=== PATIENT | female | born 1945 | race Caucasian/White ===

== ENCOUNTER 2016-10-21 08:22 | Day surgery (SDC) | payer MEDICARE, OTHER ==
[2016-10-21] MEDS ORDERED: PHENYLEPHRINE 2.5% OPHTH 2 ML DROPS ONE (08:38)
[2016-10-21] MEDS ORDERED: PROPARACAINE 0.5% OPHTH DROPS 15 ML OPTH ONE ×2 (08:54→09:44)
[2016-10-21] MEDS ORDERED: CYCLOPENTOLATE 1% OPHTH DROPS 2 ML OPTH ONE (08:54)
[2016-10-21] MEDS ORDERED: KETOROLAC 0.45% OPHTH DROPS OPTH ONE (08:55)
[2016-10-21] MEDS ORDERED: PHENYLEPHRINE 2.5% OPHTH 2 ML DROPS OPTH ONE (08:55)
[2016-10-21] MEDS ORDERED: DEXAMETHASONE 4 MG/ML VIAL IVP ONE (09:00)
[2016-10-21] MEDS ORDERED: LIDOCAINE-MPF 2% 5 ML VIAL IM ONE (09:00)
[2016-10-21] MEDS ORDERED: ONDANSETRON 4 MG/2 ML VIAL IVP ONE (09:00)
[2016-10-21] MEDS ORDERED: PROPOFOL 200 MG/20 ML VIAL IVP ONE (09:00)
[2016-10-21] MEDS ORDERED: MIDAZOLAM 2 MG/2 ML VIAL IVP ONE (09:00)
[2016-10-21] MEDS ORDERED: LACTATED RINGERS 500 ML IV ONE (09:01)
[2016-10-21] MEDS ORDERED: BRIMONIDINE 0.2% OPHTH DROPS 5 ML OPTH ONE (09:43)
[2016-10-21] MEDS ORDERED: TIMOLOL 0.5% OPHTH DROPS OPTH ONE (09:44)
[2016-10-21] MEDS ORDERED: CHONDR SULF/HYALURONATE SYRINGE IO ONE (09:44)
[2016-10-21] MEDS ORDERED: EPINEPHrine 1 MG/ML AMP IVP ONE (09:44)
[2016-10-21] MEDS ORDERED: BSS/LIDOCAINE/EPINEPHRINE 1 ML SYRINGE IO ONE (09:45)
[2016-10-21] MEDS ORDERED: TRIAMCIN/MOXIFLOX/VANCO 1 ML VIAL IO ONE (09:45)
[2016-10-21] MEDS ORDERED: KETOROLAC 15 MG/ML VIAL ONE (10:45)
== END 2016-10-21 08:23 | disposition home or self-care (01) ==
PROC: 08RK3JZ Replacement of Left Lens with Synthetic Substitute, Percutaneous Approach (ICD-10-PCS; principal; 2016-10-21 09:45)
DX: H25.12 Age-related nuclear cataract, left eye (principal); I10 Essential (primary) hypertension; K21.9 Gastro-esophageal reflux disease without esophagitis; E78.5 Hyperlipidemia, unspecified; M19.042 Primary osteoarthritis, left hand
CPT/HCPCS: 66984; A9270; V2632

== ENCOUNTER 2016-11-29 10:36 | Outpatient (CLI) | payer MEDICARE, OTHER | END 2016-11-29 10:37 | disposition home or self-care (01) | DX: Z12.31 Encounter for screening mammogram for malignant neoplasm of breast (principal) ==

== ENCOUNTER 2017-03-09 07:32 | Outpatient (CLI) | payer MEDICARE, OTHER ==
[2017-03-09 12:17] LABS: LDL CHOLESTEROL,DIRECT 122 mg/dL
== END 2017-03-09 07:33 | disposition home or self-care (01) ==
LOC: LAB.F 07:32
PROVIDERS: ATTEND Physician Assistant Medical
DX: E78.2 Mixed hyperlipidemia (principal); Z79.899 Other long term (current) drug therapy
CPT/HCPCS: 36415; 84450; 84460

== ENCOUNTER 2017-04-21 07:54 | Outpatient (CLI) | payer MEDICARE, OTHER ==
[2017-04-21 14:19] LABS: BASOPHILS # (AUTO) 0.1 10^3/uL (0.0-0.1); BASOPHILS % (AUTO) 1.8 %; EOSINOPHILS # (AUTO) 0.4 10^3/uL (0.0-0.7); EOSINOPHILS % (AUTO) 6.7 %; HCT - HEMATOCRIT 35.9 % (37.0-47.0); HGB - HEMOGLOBIN 12.3 g/dL (12.0-16.0); LYMPHOCYTES # (AUTO) 1.8 10^3/uL (1.5-3.5); LYMPHOCYTES % (AUTO) 29.5 %; MEAN CORPUSCULAR HEMOGLOBIN 28.7 pg (27.0-31.0); MEAN CORPUSCULAR HGB CONC 34.2 g/dL (32.0-36.0); MEAN CORPUSCULAR VOLUME 84.1 fL (81.0-99.0); MONOCYTES # (AUTO) 0.4 10^3/uL (0.0-1.0); MONOCYTES % (AUTO) 7.3 %; NEUTROPHILS # (AUTO) 3.4 10^3/uL (1.5-6.6); NEUTROPHILS % (AUTO) 54.7 %; RED BLOOD COUNT 4.27 10^6/uL (4.20-5.40); RED CELL DISTRIBUTION WIDTH 13.8 % (12.0-15.0); UNCORRECTED WHITE BLOOD COUNT 6.2 x10^3/uL; WHITE BLOOD COUNT 6.2 x10^3/uL (4.8-10.8)
[2017-04-21 14:35] LABS: ALBUMIN/GLOBULIN RATIO 1.6 (1.0-2.2); BILIRUBIN,TOTAL 1.1 mg/dL (0.2-1.0); BUN - BLOOD UREA NITROGEN 18 mg/dL (6-20); CALCIUM 8.8 mg/dL (8.5-10.3); CARBON DIOXIDE - CO2 26 mmol/L (21-32); CHLORIDE 106 mmol/L (101-111); CHOL/HDL RATIO 2.4 (<4.4); CHOLESTEROL 198 mg/dL; CREATININE 0.5 mg/dL (0.4-1.0); GFR - MDRD 122 (>89); GLUCOSE 97 mg/dL (70-100); HDL CHOLESTEROL 83 mg/dL; LDL/HDL RATIO 1.2 (<4.4); POTASSIUM 3.7 mmol/L (3.5-5.0); SODIUM 140 mmol/L (135-145); TOTAL PROTEIN 6.9 g/dL (6.7-8.2); TRIGLYCERIDES 63 mg/dL; VLDL CHOLESTEROL 13 mg/dL
== END 2017-04-21 07:55 | disposition home or self-care (01) ==
LOC: LAB.F 07:54
PROVIDERS: ATTEND Physician Assistant Medical
DX: E55.9 Vitamin D deficiency, unspecified (principal); E78.5 Hyperlipidemia, unspecified; I10 Essential (primary) hypertension; Z11.59 Encounter for screening for other viral diseases; M85.80 Other specified disorders of bone density and structure, unspecified site; Z79.899 Other long term (current) drug therapy
CPT/HCPCS: 36415; 80053; 80061; 82306; 84443; 85025; 86803

== ENCOUNTER 2017-05-17 11:58 | Outpatient (CLI) | payer MEDICARE, OTHER ==
--- NOTE | 2017-05-17 17:28 | XRAY Report ---
BILATERAL HIPS AND PELVIS: 05/17/2017 CLINICAL INDICATION: Osteoarthritis. Frontal view of the hips and pelvis, and bilateral frog-leg lateral views of the hips demonstrate no evidence of fracture or dislocation. The joint spaces are preserved. No radiopaque foreign body is seen in the soft tissues. IMPRESSION: NORMAL HIPS AND PELVIS. JOB #: [id number] EXT JOB #:[id number]
== END 2017-05-17 11:59 | disposition home or self-care (01) ==
LOC: DI.S 11:58
PROVIDERS: ATTEND Physician Assistant Medical
DX: M15.9 Polyosteoarthritis, unspecified (principal)
CPT/HCPCS: 73521

== ENCOUNTER 2018-07-18 09:28 | Outpatient (CLI) | payer MEDICARE, OTHER ==
[2018-07-18 17:56] LABS: BASOPHILS # (AUTO) 0.1 10^3/uL (0.0-0.1); BASOPHILS % (AUTO) 1.7 %; EOSINOPHILS # (AUTO) 0.4 10^3/uL (0.0-0.7); EOSINOPHILS % (AUTO) 7.2 %; HGB - HEMOGLOBIN 12.6 g/dL (12.0-16.0); LYMPHOCYTES # (AUTO) 1.7 10^3/uL (1.5-3.5); LYMPHOCYTES % (AUTO) 32.2 %; MEAN CORPUSCULAR HEMOGLOBIN 28.7 pg (27.0-31.0); MEAN CORPUSCULAR HGB CONC 33.1 g/dL (32.0-36.0); MEAN CORPUSCULAR VOLUME 86.8 fL (81.0-99.0); MEAN PLATELET VOLUME 9.2 fL (7.9-10.8); MONOCYTES # (AUTO) 0.4 10^3/uL (0.0-1.0); MONOCYTES % (AUTO) 6.9 %; NEUTROPHILS # (AUTO) 2.7 10^3/uL (1.5-6.6); PLT - PLATELET COUNT 193 10^3/uL (130-450); WHITE BLOOD COUNT 5.2 x10^3/uL (4.8-10.8)
[2018-07-18 18:06] LABS: ALBUMIN 4.4 g/dL (3.2-5.5); ALBUMIN/GLOBULIN RATIO 1.7 (1.0-2.2); ALKALINE PHOSPHATASE 53 IU/L (42-121); ALT ALANINE AMINOTRANSFERASE 27 IU/L (10-60); AST ASPARTATE AMINOTRANSFERASE 21 IU/L (10-42); BILIRUBIN,TOTAL 0.7 mg/dL (0.2-1.0); BUN - BLOOD UREA NITROGEN 15 mg/dL (6-20); CARBON DIOXIDE - CO2 28 mmol/L (21-32); CHLORIDE 104 mmol/L (101-111); CHOL/HDL RATIO 2.5 (<4.4); CHOLESTEROL 189 mg/dL; CREATININE 0.4 mg/dL (0.4-1.0); GFR - MDRD 157 (>89); GLUCOSE 92 mg/dL (70-100); HDL CHOLESTEROL 76 mg/dL; LDL CHOLESTEROL,CALCULATED 96 mg/dL; LDL/HDL RATIO 1.3 (<4.4); SODIUM 138 mmol/L (135-145); VLDL CHOLESTEROL 17 mg/dL
== END 2018-07-18 09:29 | disposition home or self-care (01) ==
LOC: LAB.F 09:28
PROVIDERS: ATTEND Physician Assistant Medical
DX: E55.9 Vitamin D deficiency, unspecified (principal); Z79.899 Other long term (current) drug therapy; E78.2 Mixed hyperlipidemia; I10 Essential (primary) hypertension; G47.00 Insomnia, unspecified
CPT/HCPCS: 36415; 80053; 80061; 82306; 83721; 84443; 85025

== ENCOUNTER 2018-07-27 11:24 | Outpatient (CLI) | payer MEDICARE, OTHER ==
--- NOTE | 2018-07-27 13:54 | XRAY Report ---
Reason: COUGH Procedure Date: 07/27/2018 Accession Number: [id number] / [id number] Procedure: XR - Chest 2 View X-Ray CPT Code: 81257 FULL RESULT: EXAM: CHEST RADIOGRAPHY EXAM DATE: 07/27/2018 11:34 AM. CLINICAL HISTORY: Cough. COMPARISON: None. TECHNIQUE: 2 views. FINDINGS: Lungs/Pleura: No focal opacities evident. No pleural effusion. No pneumothorax. Normal volumes. Mediastinum: Heart and mediastinal contours are unremarkable. Other: Mild thoracic kyphosis. IMPRESSION: No acute cardiopulmonary abnormality. RADIA
== END 2018-07-27 11:25 | disposition home or self-care (01) ==
LOC: DI 11:24
PROVIDERS: ATTEND Physician Assistant Medical
DX: R05 Cough (principal)
CPT/HCPCS: 71046

== ENCOUNTER 2018-09-01 12:10 | Outpatient (CLI) | payer MEDICARE, OTHER ==
--- NOTE | 2018-09-01 15:52 | DEXA Report ---
Reason: POSTMENOPAUSAL Procedure Date: 09/01/2018 Accession Number: [id number] / [id number] Procedure: DEX - Dexa Spine and/or Hip CPT Code: FULL RESULT: EXAM: Dexa Spine and/or Hip DATE: 09/01/2018 12:43 PM CLINICAL HISTORY: POSTMENOPAUSAL TECHNIQUE: Dual energy x-ray absorptiometry (DXA) was performed on a [id number] System. Regions measured are the AP Spine, femoral neck, and if needed forearm. COMPARISON: 04/26/2016 In accordance with the International Society for Clinical Densitometry (ISCD) guidelines, data from previous exams may be reanalyzed using current recommendations and techniques. This is done to allow a more accurate basis for comparison with the current study. FINDINGS: The data for the lumbar spine is as follows: BMD (g/cm/cm) T-SCORE Z-SCORE REGION L1 1.225 0.8 2.1 L2 1.155 -0.4 1.0 L3 1.248 0.4 1.7 L4 1.215 0.1 1.5 TOTAL 1.212 0.3 1.6 NOTE: All evaluable vertebrae are used for classification. The bone mineral density has decreased by 1.5% since 04/26/2016. The data for the hip is as follows: BMD (g/cm/cm) T-SCORE Z-SCORE REGION Neck 0.797 -1.7 -0.2 TOTAL 0.815 -1.5 -0.2 NOTE: The femoral neck or total proximal femur, whichever is lowest, is used for classification. The bone mineral density has decreased by 0.5% since 04/26/2016. IMPRESSION: THE WHO CLASSIFICATION BASED ON THE INTERNATIONAL REFERENCE STANDARD IS OSTEOPENIA. THE FRACTURE RISK IS INCREASED. RECOMMENDATION: Patients with diagnosis of osteoporosis or osteopenia should have regular bone mineral density assessment. For those eligible for Medicare, routine testing is allowed once every 2 years. Testing frequency can be increased for patients who have rapidly progressing disease or for those who are receiving medical therapy to restore bone mass. COMMENT: World Health Organization (WHO) definitions for osteoporosis and osteopenia: NORMAL BMD: T-score at -1.0 or higher, fracture risk is low OSTEOPENIA BMD: T-score between -1.0 and -2.5, fracture risk is increased. OSTEOPOROSIS BMD: T-score at -2.5 or lower, fracture risk is high. National Osteoporosis Foundation recommends: 1. Obtain adequate dietary calcium (at least 1200 mg per day) and vitamin D (400-800 international units per day). 2. Participate, as appropriate, in regular weightbearing and muscle-strengthening exercise. 3. Avoid tobacco use and reduce alcohol and caffeine intake. 4. For more detailed information see the website at www.NOF.org.
== END 2018-09-01 12:11 | disposition home or self-care (01) ==
LOC: DI 12:10
PROVIDERS: ATTEND Physician Assistant Medical
DX: M85.88 Other specified disorders of bone density and structure, other site (principal)
CPT/HCPCS: 77080

== ENCOUNTER 2018-11-13 11:14 | Day surgery (SDC) | payer MEDICARE, OTHER ==
[2018-11-13] MEDS ORDERED: LACTATED RINGERS 1,000 ML IV ONE (11:39)
[2018-11-13] MEDS ORDERED: fentaNYL 250 MCG/5 ML VIAL IVP ONE (13:10)
[2018-11-13] MEDS ORDERED: MIDAZOLAM 2 MG/2 ML VIAL IVP ONE (13:10)
[2018-11-13 14:26] VITALS: BP 108/67
== END 2018-11-13 11:15 | disposition home or self-care (01) ==
LOC: SDS 11:14
PROVIDERS: ATTEND Surgery
PROC: 0DBP8ZZ Excision of Rectum, Via Natural or Artificial Opening Endoscopic (ICD-10-PCS; principal; 2018-11-13 12:15)
DX: Z12.11 Encounter for screening for malignant neoplasm of colon (principal); D12.8 Benign neoplasm of rectum; K57.30 Diverticulosis of large intestine without perforation or abscess without bleeding; K64.8 Other hemorrhoids; K21.9 Gastro-esophageal reflux disease without esophagitis; I10 Essential (primary) hypertension; E78.5 Hyperlipidemia, unspecified; M85.80 Other specified disorders of bone density and structure, unspecified site; M19.90 Unspecified osteoarthritis, unspecified site
CPT/HCPCS: 45380; J7120

== ENCOUNTER 2019-01-18 09:15 | Day surgery (SDC) | payer MEDICARE, OTHER ==
[~2019-01-18 09:15] MED LIST: CYCLOPENTOLATE 1% OPHTH DROPS 2 ML ONE; KETOROLAC 0.45% OPHTH DROPS ONE; PHENYLEPHRINE 2.5% OPHTH 2 ML DROPS ONE; PROPARACAINE 0.5% OPHTH DROPS 15 ML ONE
[2019-01-18 09:55] VITALS: BP 154/89
--- NOTE | 2019-01-18 10:04 | ANESTHESIA ---
Pre-Anesthesia VS, & Labs - Diagnosis R nuclear sclerotic cataract - Procedure R extraction cataract with IOL Vital Signs: Temp Pulse Resp BP Pulse Ox 36 C L 68 16 154/89 H 100 01/18/19 09:54 01/18/19 09:54 01/18/19 09:54 01/18/19 09:54 01/18/19 09:54 Height 5 ft 5 in Weight (kg) 77.8 kg - NPO Last Fluid Intake: coffee with tbs milk@0630 - Is Patient ?: No Home Medications and Allergies Esomeprazole Magnesium [Nexium] 20 mg PO DAILY 10/20/16 Ibuprofen [Advil] 200 mg PO ONCE 10/20/16 Losartan Potassium 100 mg PO DAILY 10/20/16 Metoprolol Succinate [Toprol Xl] 50 mg PO DAILY 10/20/16 Multivitamin [Multivitamins] 1 each PO DAILY 10/20/16 diphenhydrAMINE [Benadryl] 25 mg PO HS 10/20/16 Atorvastatin [Lipitor] 1 DAILY 11/13/18 Allergies/Adverse Reactions: Allergies Allergy/AdvReac Type Severity Reaction Status Date / Time No Known Drug Allergies Allergy Verified 03/02/13 09:43 Anes History & Medical History - Anesthetic History Anesthesia Complications: reports: No previous complications Family history of Anesthesia Complications: Denies Family history of Malignant Hyperthermia: Denies - Medical History Cardiovascular: reports: Hypertension Pulmonary: reports: None Gastrointestinal: reports: GERD Urinary: reports: None Musculoskeletal: reports: Osteoarthritis Endocrine/Autoimmune: reports: None Skin: reports: None Smoking Status: Never smoker - Surgical History General: Cholecystectomy Exam General: Alert, Oriented x3, Cooperative Dental: WNL Mouth Openin Fingerbreadth Neck Mobility: Normal Mallampati classification: II Thyromental Distance: 4-6 cm Respiratory: Lungs clear Cardiovascular: Regular rate Neurological: Normal speech Mental/Cognitive Status: Alert/Oriented X3, Normal for patient Cognitive Status: Within normal limits Plan Anesthesia Type: MAC Consent for Procedure(s) Verified and Reviewed: Yes Code Status: Attempt Resuscitation ASA classification: 3-Severe systemic disease Is this case an emergency?: No
[2019-01-18] MEDS ORDERED: KETOROLAC 0.45% OPHTH DROPS RIGHTEYE ONE (10:05)
[2019-01-18] MEDS ORDERED: PROPARACAINE 0.5% OPHTH DROPS 15 ML RIGHTEYE ONE (10:05)
[2019-01-18] MEDS ORDERED: PHENYLEPHRINE 2.5% OPHTH 2 ML DROPS RIGHTEYE ONE (10:05)
[2019-01-18] MEDS ORDERED: CYCLOPENTOLATE 1% OPHTH DROPS 2 ML RIGHTEYE ONE (10:05)
[2019-01-18] MEDS ORDERED: LACTATED RINGERS 500 ML IV ONE (10:11)
== END 2019-01-18 09:16 | disposition home or self-care (01) ==
LOC: SDS 09:15
PROVIDERS: ATTEND Ophthalmology
DX: Z53.09 Procedure and treatment not carried out because of other contraindication (principal)
CPT/HCPCS: A9270; J3490

== ENCOUNTER 2019-02-22 09:40 | Day surgery (SDC) | payer MEDICARE, OTHER ==
[~2019-02-22 09:40] MED LIST changes: +BRIMONIDINE 0.2% OPHTH DROPS 5 ML ONE; +BSS/LIDOCAINE/EPINEPHRINE 1 ML SYRINGE ONE; +TIMOLOL 0.5% OPHTH DROPS ONE; +TRIAMCIN/MOXIFLOX OPHTHALMIC 0.6 ML VIAL IO ONE; +VANCOMYCIN OPHTHALMI 8MG/0.8ML 8 MG/0.8 ML SYRINGE IO ONE
[2019-02-22] MEDS ORDERED: PROPARACAINE 0.5% OPHTH DROPS 15 ML RIGHTEYE ONE (09:55)
[2019-02-22] MEDS ORDERED: KETOROLAC 0.45% OPHTH DROPS RIGHTEYE ONE (09:55)
[2019-02-22] MEDS ORDERED: CYCLOPENTOLATE 1% OPHTH DROPS 2 ML RIGHTEYE ONE (09:55)
[2019-02-22] MEDS ORDERED: PHENYLEPHRINE 2.5% OPHTH 2 ML DROPS RIGHTEYE ONE (09:55)
[2019-02-22] MEDS ORDERED: LACTATED RINGERS 500 ML IV ONE (09:56)
--- NOTE | 2019-02-22 10:17 | ANESTHESIA ---
Pre-Anesthesia VS, & Labs - Diagnosis nuclear sclerotic cataract right eye - Procedure cataract extraction with intraocular lens implant right eye Vital Signs: Temp Pulse Resp BP Pulse Ox 36.1 C L 67 16 154/89 H 100 02/22/19 09:49 02/22/19 09:49 02/22/19 09:49 02/22/19 09:49 02/22/19 09:49 Height 5 ft 5 in Weight (kg) 75 kg - NPO Last Fluid Intake: 729-iced tea - Is Patient ?: No Home Medications and Allergies Esomeprazole Magnesium [Nexium] 20 mg PO DAILY 10/20/16 Ibuprofen [Advil] 200 mg PO ONCE 10/20/16 Losartan Potassium 100 mg PO DAILY 10/20/16 Metoprolol Succinate [Toprol Xl] 50 mg PO DAILY 10/20/16 Multivitamin [Multivitamins] 1 each PO DAILY 10/20/16 diphenhydrAMINE [Benadryl] 25 mg PO HS 10/20/16 Atorvastatin [Lipitor] 1 DAILY 11/13/18 Allergies/Adverse Reactions: Allergies Allergy/AdvReac Type Severity Reaction Status Date / Time No Known Drug Allergies Allergy Verified 03/02/13 09:43 Anes History & Medical History - Medical History Cardiovascular: reports: Hypertension Pulmonary: reports: None Gastrointestinal: reports: GERD (controlled on medication) Urinary: reports: None Neuro: reports: None Musculoskeletal: reports: Osteoarthritis Endocrine/Autoimmune: reports: None Skin: reports: None Smoking Status: Never smoker Psychosocial: reports: No issues indicated - Surgical History General: Cholecystectomy Eyes Ears Nose Throat (EENT): Cataracts Exam General: Alert, Oriented x3, Cooperative, No acute distress Dental: WNL Mouth Openin Fingerbreadth Neck Mobility: Normal Mallampati classification: II Thyromental Distance: 4-6 cm Respiratory: Lungs clear, Normal breath sounds, No respiratory distress, No accessory muscle use Cardiovascular: Regular rate, Normal S1, Normal S2, No murmurs Mental/Cognitive Status: Alert/Oriented X3, Normal for patient Plan Anesthesia Type: MAC (Patient had GA with previous cataract. She would like to have heavy sedation.) Consent for Procedure(s) Verified and Reviewed: Yes Code Status: Attempt Resuscitation ASA classification: 2-Mild systemic disease Is this case an emergency?: No
[2019-02-22] MEDS ORDERED: PROPOFOL 200 MG/20 ML VIAL IVP ONE (10:59)
[2019-02-22] MEDS ORDERED: MIDAZOLAM 2 MG/2 ML VIAL IVP ONE (10:59)
[2019-02-22] MEDS ORDERED: LIDOCAINE-MPF 2% 5 ML VIAL IM ONE (10:59)
[2019-02-22] MEDS ORDERED: fentaNYL 100 MCG/2 ML VIAL IVP ONE (10:59)
[2019-02-22] MEDS ORDERED: TIMOLOL 0.5% OPHTH DROPS OPTH ONE (11:00)
[2019-02-22] MEDS ORDERED: BSS/LIDOCAINE/EPINEPHRINE 1 ML SYRINGE IO ONE (11:00)
[2019-02-22] MEDS ORDERED: CHONDR SULF/HYALURONATE SYRINGE IO ONE (11:00)
[2019-02-22] MEDS ORDERED: BRIMONIDINE 0.2% OPHTH DROPS 5 ML OPTH ONE (11:00)
[2019-02-22] MEDS ORDERED: EPINEPHrine 1 MG/ML AMP IVP ONE (11:00)
[2019-02-22] MEDS ORDERED: VANCOMYCIN OPHTHALMI 8MG/0.8ML 8 MG/0.8 ML SYRINGE IO ONE (11:01)
[2019-02-22] MEDS ORDERED: TRIAMCIN/MOXIFLOX OPHTHALMIC 0.6 ML VIAL IO ONE (11:01)
--- NOTE | 2019-02-22 11:29 | OPERATIVE REPORT ---
DATE OF SERVICE: 02/22/2019 Physician: Fran Azul MD PREOPERATIVE DIAGNOSIS: Visually significant cataract, right eye. Cataract surgery was performed on the left eye on 10/21/2016. POSTOPERATIVE DIAGNOSIS: Visually significant cataract, right eye. Cataract surgery was performed o n the left eye on 10/21/2016. PROCEDURE: Phacoemulsification with posterior chamber intraocular lens implant, right eye. SURGEON: Fran Azul MD ANESTHESIA: General anesthesia with LMA. COMPLICATIONS: None. OPERATIVE INDICATIONS: This is a 73-year-old woman with progressive vision loss in the right eye due to 3+ nuclear sclerotic cataract. Best corrected visual acuity was 20/40, with glare to 20/160 in t he right eye. Indications for surgery are overall decrease in vision, difficulty driving in low ligh t or at night, difficulty driving at night because of headlights from other vehicles, and difficulty with glare or bright lights in any situation. She was consented at length concerning the risks and b enefits of cataract surgery, after which she expressed a desire to proceed with surgery. OPERATIVE PROCEDURE: Patient was taken into OR #3 and placed under monitored anesthesia care. A anastasia gical timeout was conducted confirming the correct patient, correct procedure, and correct surgical s ite. She was given topical anesthesia, and then prepped and draped in the usual sterile fashion. Th e eye was entered at the 12 and 9 o'clock positions. Intracameral Shugarcaine was injected into the anterior chamber, followed by Viscoat. A continuous-tear curvilinear capsulorrhexis was performed. The nucleus was hydrodissected and phacoemulsified. The cortex was evacuated using automated infusio n and aspiration. Provisc was injected into the capsular bag, and a 23.5 diopter intraocular lens wa s inserted in tothe bag. Approximately 0.8 mL of a mixture of triamcinolone, moxifloxacin and vancom ycin was injected subconjunctivally into the superior quadrant for infection and inflammation prophyl axis. I and A was used to evacuate the viscoelastic materials. The eye was inflated to physiologic pressure using balanced salt solution and found to be watertight. Patient was taken from the operati ng room in good condition and given postoperative instructions. TD: 02/22/2019 11:24
[2019-02-22 11:45] VITALS: BP 133/64
== END 2019-02-22 09:41 | disposition home or self-care (01) ==
LOC: SDS 09:40
PROVIDERS: ATTEND Ophthalmology
PROC: 08RJ3JZ Replacement of Right Lens with Synthetic Substitute, Percutaneous Approach (ICD-10-PCS; principal; 2019-02-22 11:00)
DX: H25.11 Age-related nuclear cataract, right eye (principal); I10 Essential (primary) hypertension; K21.9 Gastro-esophageal reflux disease without esophagitis; Z79.899 Other long term (current) drug therapy; Z98.42 Cataract extraction status, left eye
CPT/HCPCS: 66984; A9270; J3490; V2632

== ENCOUNTER 2020-11-06 09:04 | Outpatient (CLI) | payer MEDICARE, OTHER ==
[2020-11-06 14:23] LABS: BASOPHILS # (AUTO) 0.1 10^3/uL (0.0-0.1); BASOPHILS % (AUTO) 1.1 %; EOSINOPHILS # (AUTO) 0.2 10^3/uL (0.0-0.7); EOSINOPHILS % (AUTO) 3.2 %; HCT - HEMATOCRIT 37.4 % (37.0-47.0); HGB - HEMOGLOBIN 11.8 g/dL (12.0-16.0); LYMPHOCYTES # (AUTO) 1.8 10^3/uL (1.5-3.5); LYMPHOCYTES % (AUTO) 28.2 %; MEAN CORPUSCULAR HEMOGLOBIN 28.4 pg (27.0-31.0); MEAN CORPUSCULAR HGB CONC 31.6 g/dL (32.0-36.0); MEAN CORPUSCULAR VOLUME 90.1 fL (81.0-99.0); MEAN PLATELET VOLUME 10.7 fL (7.9-10.8); MONOCYTES # (AUTO) 0.5 10^3/uL (0.0-1.0); MONOCYTES % (AUTO) 7.2 %; NEUTROPHILS # (AUTO) 3.8 10^3/uL (1.5-6.6); PLT - PLATELET COUNT 206 10^3/uL (130-450); RED BLOOD COUNT 4.15 10^6/uL (4.20-5.40); RED CELL DISTRIBUTION WIDTH 13.2 % (12.0-15.0); WHITE BLOOD COUNT 6.3 x10^3/uL (4.8-10.8)
[2020-11-06 15:32] LABS: ALBUMIN 4.1 g/dL (3.2-5.5); ALBUMIN/GLOBULIN RATIO 1.5 (1.0-2.2); ALKALINE PHOSPHATASE 46 IU/L (42-121); ALT ALANINE AMINOTRANSFERASE 24 IU/L (10-60); AST ASPARTATE AMINOTRANSFERASE 20 IU/L (10-42); BILIRUBIN,TOTAL 0.6 mg/dL (0.2-1.0); BUN - BLOOD UREA NITROGEN 18 mg/dL (6-20); CALCIUM 9.3 mg/dL (8.5-10.3); CARBON DIOXIDE - CO2 27 mmol/L (21-32); CHLORIDE 102 mmol/L (101-111); CHOL/HDL RATIO 3.3 (<4.4); CHOLESTEROL 228 mg/dL; CREATININE 0.5 mg/dL (0.4-1.0); GFR - MDRD 121 (>89); GLUCOSE 90 mg/dL (70-100); HDL CHOLESTEROL 70 mg/dL; LDL CHOLESTEROL,CALCULATED 134 mg/dL; LDL/HDL RATIO 1.9 (<4.4); SODIUM 138 mmol/L (135-145); TOTAL PROTEIN 6.8 g/dL (6.7-8.2); TRIGLYCERIDES 118 mg/dL; VLDL CHOLESTEROL 24 mg/dL
[2020-11-06 15:35] LABS: CA 125 10.9 U/mL (0.0-35.0)
[2020-11-06 15:38] LABS: THYROID STIMULATING HORMONE 0.88 uIU/mL (0.34-5.60)
== END 2020-11-06 09:05 | disposition home or self-care (01) ==
LOC: LAB.S 09:04
PROVIDERS: ATTEND Internal Medicine
DX: E78.2 Mixed hyperlipidemia (principal); R63.4 Abnormal weight loss; E03.9 Hypothyroidism, unspecified; Z12.73 Encounter for screening for malignant neoplasm of ovary; I10 Essential (primary) hypertension
CPT/HCPCS: 36415; 80053; 80061; 81599; 82728; 83721; 84443; 85025; 86304

== ENCOUNTER 2020-11-06 09:35 | Outpatient (CLI) | payer MEDICARE, OTHER ==
--- NOTE | 2020-11-06 10:10 | XRAY Report ---
PROCEDURE: Chest 2 View X-Ray INDICATIONS: COUGH TECHNIQUE: 2 view(s) of the chest. COMPARISON: 07/27/2018. FINDINGS: Surgical changes and devices: Cholecystectomy clips. Lungs and pleura: No pleural effusions or pneumothorax. Lungs are clear. Mediastinum: Mediastinal contours are normal. Heart size is normal. Bones and chest wall: No suspicious bony abnormalities. Thoracic spine degenerative disc disease. S oft tissues appear unremarkable. IMPRESSION: No acute cardiopulmonary disease process. Reviewed by: Elham Ronquillo MD, PhD on 11/06/2020 10:09 AM PDT Approved by: Elham Ronquillo MD, PhD on 11/06/2020 10:09 AM PDT Station ID: [id number]
== END 2020-11-06 09:36 | disposition home or self-care (01) ==
LOC: DI.S 09:35
PROVIDERS: ATTEND Internal Medicine
DX: R05 Cough (principal); E78.2 Mixed hyperlipidemia; R63.4 Abnormal weight loss; E03.9 Hypothyroidism, unspecified; I10 Essential (primary) hypertension; Z12.73 Encounter for screening for malignant neoplasm of ovary
CPT/HCPCS: 36415; 80053; 80061; 81599; 82728; 83721; 84443; 85025; 86304

== ENCOUNTER 2021-08-03 11:24 | Outpatient (CLI) | payer MEDICARE, OTHER ==
[2021-08-03] MEDS ORDERED: IOPAMIDOL-300 100 ML VIAL ONE (11:36)
[2021-08-03] MEDS ORDERED: IOPAMIDOL-300 50 ML VIAL ONE (11:36)
[2021-08-03 11:51] LABS: CREATININE 0.5 mg/dL (0.4-1.0)
[2021-08-03] MEDS ORDERED: IOPAMIDOL-300 100 ML VIAL IVP ONE (13:16)
[2021-08-03] MEDS ORDERED: IOPAMIDOL-300 50 ML VIAL PO ONE (13:16)
--- NOTE | 2021-08-03 15:26 | CT Report ---
PROCEDURE: Abdomen/Pelvis W INDICATIONS: ABD PAIN, ABN WEIGHT LOSS CONTRAST: IV CONTRAST: Isovue 300 ml: 100 PO CONTRAST: Isovue 300 ml50 TECHNIQUE: After the administration of oral and intravenous contrast, 5 mm thick sections acquired from the diap hragms to the symphysis. 5 mm thick coronal and sagittal reformats were acquired. For radiation dos e reduction, the following was used: automated exposure control, adjustment of mA and/or kV accordin g to patient size. COMPARISON: None. FINDINGS: Image quality: Excellent. ABDOMEN: Lung bases: Lung bases are clear. Heart size is normal. Solid organs: Liver and spleen are normal in size and enhancement. Gallbladder is surgically absent . Biliary system is non dilated. Pancreas enhances normally. No adrenal nodules. Kidneys demonstr ate normal size and enhancement, without hydronephrosis. Peritoneum and bowel: Bowel loops demonstrate normal wall thickness and caliber. No free fluid or a ir. Diverticulosis without evidence of diverticulitis. Nodes and vessels: No retroperitoneal or mesenteric adenopathy by size criteria. Aorta and inferior vena cava are normal in size. Miscellaneous: No ventral hernias. PELVIS: Genitourinary: Bladder wall thickness is normal. Miscellaneous: No inguinal hernias or adenopathy. Bones: No suspicious bony lesions. No vertebral body compression fractures. Lumbar degenerative ch adeola. IMPRESSION: 1. No evidence of acute abdominal process. 2. No evidence of metastatic disease in the abdomen and pelvis. 3. Diverticulosis without evidence of diverticulitis. Reviewed by: Dennis Pringle MD on 08/03/2021 3:24 PM PST Approved by: Dennis Pringle MD on 08/03/2021 3:24 PM PST Station ID: [id number]
== END 2021-08-03 11:25 | disposition home or self-care (01) ==
LOC: DI 11:24
PROVIDERS: ATTEND Internal Medicine
DX: R10.9 Unspecified abdominal pain (principal); I10 Essential (primary) hypertension; K57.90 Diverticulosis of intestine, part unspecified, without perforation or abscess without bleeding; R63.4 Abnormal weight loss
CPT/HCPCS: 36415; 74177; 82565; Q9967

== ENCOUNTER 2022-11-12 09:15 | Outpatient (CLI) | payer MEDICARE, OTHER ==
[2022-11-12 14:31] LABS: BASOPHILS # (AUTO) 0.1 10^3/uL (0.0-0.1); BASOPHILS % (AUTO) 1.2 %; EOSINOPHILS # (AUTO) 0.1 10^3/uL (0.0-0.7); HCT - HEMATOCRIT 36.1 % (37.0-47.0); HGB - HEMOGLOBIN 11.2 g/dL (12.0-16.0); LYMPHOCYTES # (AUTO) 1.9 10^3/uL (1.5-3.5); LYMPHOCYTES % (AUTO) 31.5 %; MEAN CORPUSCULAR HEMOGLOBIN 26.9 pg (27.0-31.0); MEAN CORPUSCULAR VOLUME 86.6 fL (81.0-99.0); MEAN PLATELET VOLUME 10.9 fL (7.9-10.8); MONOCYTES # (AUTO) 0.5 10^3/uL (0.0-1.0); MONOCYTES % (AUTO) 8.3 %; NEUTROPHILS # (AUTO) 3.4 10^3/uL (1.5-6.6); NEUTROPHILS % (AUTO) 56.8 %; PLT - PLATELET COUNT 225 10^3/uL (130-450); RED BLOOD COUNT 4.17 10^6/uL (4.20-5.40); RED CELL DISTRIBUTION WIDTH 14.6 % (12.0-15.0)
[2022-11-12 14:52] LABS: ALBUMIN 4.2 g/dL (3.2-5.5); ALBUMIN/GLOBULIN RATIO 1.6 (1.0-2.2); ALKALINE PHOSPHATASE 51 IU/L (42-121); ALT ALANINE AMINOTRANSFERASE 22 IU/L (10-60); AST ASPARTATE AMINOTRANSFERASE 22 IU/L (10-42); BILIRUBIN,TOTAL 0.4 mg/dL (0.2-1.0); BUN - BLOOD UREA NITROGEN 17 mg/dL (6-20); CARBON DIOXIDE - CO2 29 mmol/L (21-32); CHLORIDE 106 mmol/L (101-111); CHOL/HDL RATIO 2.4 (<4.4); CHOLESTEROL 191 mg/dL; CREATININE 0.5 mg/dL (0.4-1.0); GFR - MDRD 120 (>89); GLUCOSE 100 mg/dL (70-100); HDL CHOLESTEROL 78 mg/dL; LDL CHOLESTEROL,CALCULATED 101 mg/dL; LDL/HDL RATIO 1.3 (<4.4); POTASSIUM 3.9 mmol/L (3.5-5.0); SODIUM 140 mmol/L (135-145); TOTAL PROTEIN 6.9 g/dL (6.7-8.2); TRIGLYCERIDES 61 mg/dL; VLDL CHOLESTEROL 12 mg/dL
[2022-11-12 15:01] LABS: THYROID STIMULATING HORMONE 0.83 uIU/mL (0.34-5.60)
== END 2022-11-12 09:16 | disposition home or self-care (01) ==
LOC: LAB.S 09:15
PROVIDERS: ATTEND Nurse Practitioner Acute Care
DX: I10 Essential (primary) hypertension (principal); E03.9 Hypothyroidism, unspecified; E78.2 Mixed hyperlipidemia; D50.9 Iron deficiency anemia, unspecified
CPT/HCPCS: 36415; 80053; 80061; 83721; 84443; 85025

== ENCOUNTER 2022-12-14 11:22 | Outpatient (CLI) | payer MEDICARE, OTHER ==
--- NOTE | 2022-12-14 14:29 | XRAY Report ---
PROCEDURE: Shoulder 3 View RT INDICATIONS: RIGHT SHOULDER PAIN TECHNIQUE: 3 views of the shoulder were acquired. COMPARISON: None. FINDINGS: Bones: No acute fracture or dislocation identified. Severe degenerative changes of the glenohumeral joint present with joint space loss and spurring present. Moderate AC joint degenerative changes also present. Soft tissues: No suspicious soft tissue calcifications. IMPRESSION: No acute fracture or dislocation identified. Degenerative changes of the glenohumeral and acromioclavicular joints. Reviewed by: Xander Agarwal MD on 12/14/2022 2:28 PM PDT Approved by: Xander Agarwal MD on 12/14/2022 2:28 PM PDT Station ID: [id number]
== END 2022-12-14 11:23 | disposition home or self-care (01) ==
LOC: DI.S 11:22
PROVIDERS: ATTEND Ophthalmology
DX: M19.011 Primary osteoarthritis, right shoulder (principal)

== ENCOUNTER 2023-12-23 09:14 | Outpatient (CLI) | payer MEDICARE, OTHER ==
[2023-12-23 15:15] LABS: BASOPHILS # (AUTO) 0.1 10^3/uL (0.0-0.1); BASOPHILS % (AUTO) 1.2 %; EOSINOPHILS # (AUTO) 0.2 10^3/uL (0.0-0.7); EOSINOPHILS % (AUTO) 2.3 %; HCT - HEMATOCRIT 33.2 % (37.0-47.0); HGB - HEMOGLOBIN 10.1 g/dL (12.0-16.0); LYMPHOCYTES # (AUTO) 1.7 10^3/uL (1.5-3.5); LYMPHOCYTES % (AUTO) 26.8 %; MEAN CORPUSCULAR HEMOGLOBIN 24.7 pg (27.0-31.0); MEAN CORPUSCULAR HGB CONC 30.4 g/dL (32.0-36.0); MEAN CORPUSCULAR VOLUME 81.2 fL (81.0-99.0); MEAN PLATELET VOLUME 11.3 fL (7.9-10.8); MONOCYTES # (AUTO) 0.6 10^3/uL (0.0-1.0); MONOCYTES % (AUTO) 8.9 %; NEUTROPHILS # (AUTO) 3.9 10^3/uL (1.5-6.6); NEUTROPHILS % (AUTO) 60.6 %; PLT - PLATELET COUNT 240 10^3/uL (130-450); RED BLOOD COUNT 4.09 10^6/uL (4.20-5.40); RED CELL DISTRIBUTION WIDTH 15.5 % (12.0-15.0); WHITE BLOOD COUNT 6.4 x10^3/uL (4.8-10.8)
[2023-12-23 16:03] LABS: ALBUMIN 4.1 g/dL (3.2-5.5); ALBUMIN/GLOBULIN RATIO 1.9 (1.0-2.2); ALKALINE PHOSPHATASE 48 IU/L (42-121); ALT ALANINE AMINOTRANSFERASE 15 IU/L (10-60); AST ASPARTATE AMINOTRANSFERASE 17 IU/L (10-42); BILIRUBIN,TOTAL 0.7 mg/dL (0.2-1.0); BUN - BLOOD UREA NITROGEN 13 mg/dL (6-20); CALCIUM 9.5 mg/dL (8.5-10.3); CARBON DIOXIDE - CO2 30 mmol/L (21-32); CHLORIDE 103 mmol/L (101-111); CHOL/HDL RATIO 2.8 (<4.4); CHOLESTEROL 200 mg/dL; CREATININE 0.6 mg/dL (0.6-1.3); GFR - MDRD 97 (>89); GLUCOSE 87 mg/dL (74-104); HDL CHOLESTEROL 72 mg/dL; LDL CHOLESTEROL,CALCULATED 102 mg/dL; LDL/HDL RATIO 1.4 (<4.4); POTASSIUM 4.1 mmol/L (3.5-4.5); SODIUM 137 mmol/L (135-145); TOTAL PROTEIN 6.3 g/dL (6.4-8.9); TRIGLYCERIDES 128 mg/dL (48-352); VLDL CHOLESTEROL 26 mg/dL
[2023-12-23 16:12] LABS: THYROID STIMULATING HORMONE 0.93 uIU/mL (0.34-5.60)
== END 2023-12-23 09:15 | disposition home or self-care (01) ==
LOC: LAB.S 09:14
PROVIDERS: ATTEND Nurse Practitioner Acute Care
DX: I10 Essential (primary) hypertension (principal); Z13.228 Encounter for screening for other metabolic disorders; Z13.220 Encounter for screening for lipoid disorders; Z13.29 Encounter for screening for other suspected endocrine disorder; Z13.0 Encounter for screening for diseases of the blood and blood-forming organs and certain disorders involving the immune mechanism
CPT/HCPCS: 36415; 80053; 80061; 83721; 84443; 85025

== ENCOUNTER 2023-12-28 08:00 | Outpatient (CLI) | payer MEDICARE, OTHER ==
[2023-12-28 15:06] LABS: FECAL OCCULT BLOOD (FIT) NEGATIVE (NEGATIVE)
== END 2023-12-28 23:59 | disposition home or self-care (01) ==
LOC: LAB.F 08:00
PROVIDERS: ATTEND Nurse Practitioner Acute Care
DX: D50.9 Iron deficiency anemia, unspecified (principal)
CPT/HCPCS: 36415; 82274; 82607; 82728; 82746; 83540; 84466; 85045

== ENCOUNTER 2023-12-28 10:45 | Outpatient (CLI) | payer MEDICARE, OTHER ==
[2023-12-28 15:42] LABS: ABSOLUTE RETICS # AUTO 0.036 10^6/uL (0.020-0.110); RED BLOOD COUNT 4.18 10^6/uL (4.20-5.40); RETICULOCYTE COUNT % (AUTO) 0.87 % (0.5-2.3)
[2023-12-28 15:57] LABS: % IRON SATURATION 8 % (20-50); IRON 29 ug/dL (50-212); TOTAL IRON BINDING CAPACITY 374 ug/dL (250-450); TRANSFERRIN 267 mg/dL (203-362)
[2023-12-28 16:18] LABS: FERRITIN 25.8 ng/mL (11.0-306.8)
== END 2023-12-28 10:46 | disposition home or self-care (01) ==
LOC: LAB.S 10:45
PROVIDERS: ATTEND Nurse Practitioner Acute Care
DX: D50.9 Iron deficiency anemia, unspecified (principal)
CPT/HCPCS: 36415; 82607; 82728; 82746; 83540; 84466; 85045

== ENCOUNTER 2024-01-12 08:00 | Outpatient (CLI) | payer MEDICARE, OTHER ==
--- NOTE | 2024-01-12 17:54 | XRAY Report ---
PROCEDURE: Shoulder 2+V RT INDICATIONS: RIGHT SHOULDER PAIN TECHNIQUE: 2 views of the shoulder were acquired. COMPARISON: None. FINDINGS: Bones: New spiral fracture through the mid humeral shaft. Glenohumeral and acromioclavicular joint s pace narrowing with associated osteophytosis. Soft tissues: No suspicious soft tissue calcifications. The visualized lungs are within normal limi ts. IMPRESSION: New spiral fracture through the mid humeral shaft. Moderate shoulder osteoarthritis. Reviewed by: Mario Kent MD on 01/12/2024 5:52 PM PDT Approved by: Mario Kent MD on 01/12/2024 5:52 PM PDT Station ID: [id number]
== END 2024-01-12 23:59 | disposition home or self-care (01) ==
LOC: DI.S 08:00
PROVIDERS: ATTEND Nurse Practitioner
DX: S42.341A Displaced spiral fracture of shaft of humerus, right arm, initial encounter for closed fracture (principal)

== ENCOUNTER 2024-01-25 11:59 | Outpatient (CLI) | payer MEDICARE, OTHER ==
--- NOTE | 2024-01-25 15:11 | XRAY Report ---
PROCEDURE: Humerus RT INDICATIONS: UNSPECIFIED FRACTURE OF SHAFT OF HUMERUS,RIGHT TECHNIQUE: 2 views of the humerus were acquired. COMPARISON: None. FINDINGS: Bones: Mildly displaced proximal diaphyseal fracture. Overall, there appears to be mild increased di astases of fracture fragments inferior subluxation is present the glenohumeral joint space, unchanged . Soft tissues: No suspicious soft tissue calcifications or masses. IMPRESSION: Mild appearance of increased diastases within the proximal humeral diaphyseal fracture without disloc ation of the glenohumeral joint space. Reviewed by: Lyudmila Alex MD on 01/25/2024 3:09 PM PDT Approved by: Lyudmila Alex MD on 01/25/2024 3:09 PM PDT Station ID: [id number]
== END 2024-01-25 12:00 | disposition home or self-care (01) ==
LOC: DI.S 11:59
PROVIDERS: ATTEND Orthopaedic Surgery
DX: S42.201A Unspecified fracture of upper end of right humerus, initial encounter for closed fracture (principal)

== ENCOUNTER 2024-02-18 11:18 | Outpatient (CLI) | payer MEDICARE, OTHER ==
--- NOTE | 2024-02-19 21:32 | XRAY Report ---
PROCEDURE: Humerus RT INDICATIONS: FRACTURE OF SHAFT HUMERUS RT TECHNIQUE: 2 views of the humerus were acquired. COMPARISON: Humerus radiograph on January 25, 2024. FINDINGS: Bones: Slight interval callus formation of spiral fracture of the proximal humeral diaphysis with on e shaft width medial displacement of the dominant distal fracture fragment. Stable alignment. Marked glenohumeral joint space narrowing and juxta-articular osteophytosis with subchondral sclerosis. No s uspicious bony lesions. Soft tissues: No suspicious soft tissue calcifications or masses. IMPRESSION: 1.Slight interval osseous healing of proximal humeral diaphyseal fracture. Stable alignment accountin g for slight differences in obliquity. 2.Marked glenohumeral joint osteoarthritis. Reviewed by: Jaxson Durham MD on 02/19/2024 9:31 PM PDT Approved by: Jaxson Durham MD on 02/19/2024 9:31 PM PDT Station ID: [id number]
== END 2024-02-18 11:19 | disposition home or self-care (01) ==
LOC: DI.S 11:18
PROVIDERS: ATTEND Orthopaedic Surgery
DX: S42.301D Unspecified fracture of shaft of humerus, right arm, subsequent encounter for fracture with routine healing (principal); M19.011 Primary osteoarthritis, right shoulder

== ENCOUNTER 2024-04-18 14:56 | Outpatient (CLI) | payer MEDICARE, OTHER ==
--- NOTE | 2024-04-20 15:50 | XRAY Report ---
PROCEDURE: Shoulder 2+V RT INDICATIONS: DISPLACED FRACTUR OF RIGHT HUMERUS TECHNIQUE: 3 views of the shoulder were acquired. COMPARISON: 01/12/2024, 02/18/2024 FINDINGS: Bones: Persistent ununited oblique proximal humeral fracture with remodeling the fracture lines no si gnificant bridging callus Soft tissues: No suspicious soft tissue calcifications. IMPRESSION: Ununited proximal humeral fracture Reviewed by: Dre Dudley MD on 04/20/2024 2:48 PM AKDT Approved by: Dre Dudley MD on 04/20/2024 2:48 PM AKDT Station ID: [id number]
== END 2024-04-18 14:57 | disposition home or self-care (01) ==
LOC: DI.S 14:56
PROVIDERS: ATTEND Orthopaedic Surgery
DX: S42.36 Segmental fracture of shaft of humerus (principal)